=== PATIENT | female | born 1955 | race Caucasian/White ===

== ENCOUNTER → 2016-10-11 | Outpatient (CLI) | payer OTHER ==
--- NOTE | 2016-10-11 15:21 | MA ---
Screening Digital Mammogram With iCAD Analysis Clinical Indications: Routine screening. A sister was diagnosed with breast cancer initially in her 4 0s and again in her 50s. Two paternal aunts were diagnosed with breast cancer in their 60s. Technique: Standard cephalocaudal projections are obtained. Digital breast tomosynthesis was performe d in the MLO projection with reconstruction at 1.0 mm slice thickness and composite MLO views reconst ructed. This examination is processed by the iCAD computer aided detection system. Comparison: October 2015, September 2015, September 2014, August 2013, August 2012. Breast density: Type B; Scattered fibroglandular densities. Findings: CAD was reviewed. No masses, suspicious calcifications or secondary signs of malignancy are seen. There has been no significant change in the appearance of either breast. Impression: Negative mammogram. BI-RADS 1. Recommendation: Routine mammographic screening in one year as long as physical examination is negativ [facility] will send a result letter to the patient. Negative mammography should not preclude additional workup of a clinically suspicious finding. The patient's information is entered into a reminder system with a target due date for her next mammo gram.
== END ==
LOC: FIMAGING 10:40
DX: Z12.31 Encounter for screening mammogram for malignant neoplasm of breast (principal); Z80.3 Family history of malignant neoplasm of breast
CPT/HCPCS: G0202

== ENCOUNTER → 2017-10-21 | Outpatient (CLI) | payer OTHER | LOC: FIMAGING 12:13 | PROVIDERS: ATTEND Physician Assistant Medical | DX: Z12.31 Encounter for screening mammogram for malignant neoplasm of breast (principal); Z80.3 Family history of malignant neoplasm of breast ==

== ENCOUNTER → 2018-11-10 | Outpatient (CLI) | payer OTHER | LOC: FIMAGING 11:13 | PROVIDERS: ATTEND Physician Assistant Medical | DX: Z12.31 Encounter for screening mammogram for malignant neoplasm of breast (principal); Z80.3 Family history of malignant neoplasm of breast ==

== ENCOUNTER → 2018-11-22 | Outpatient (CLI) | payer OTHER | LOC: BMCIMAGING 10:18 | PROVIDERS: ATTEND Physician Assistant Medical | DX: R92.8 Other abnormal and inconclusive findings on diagnostic imaging of breast (principal) ==